=== PATIENT | female | born 1965 | race Caucasian/White ===

== ENCOUNTER → 2018-04-20 15:13 | Outpatient (CLI) | payer OTHER, SELFPAY ==
--- NOTE | 2018-04-20 15:48 | US_ITS ---
STUDY: RENAL ULTRASOUND - COMPLETE REASON FOR EXAM: Female, 53 years old. Microhematuria. TECHNIQUE: Ultrasound evaluation of the kidneys was performed with real-time and static barragan-scale imaging. COMPARISON: None. FINDINGS: RIGHT KIDNEY: Normal location of the right kidney, which is normal in size. The right kidney measures 10.9 cm x 4.2 cm x 4.8 cm. There is a normal cortex of the right kidney. The renal cortex measures 1.2 cm. There is no right renal mass or cyst. There are no right renal calculi. Fullness of the right renal pelvis. No hung hydronephrosis is seen. DISTAL RIGHT URETER: There is non-visualization of the distal right ureter. There is no demonstrated right ureterovesical junction calculus. There is a visualized right ureteral jet. LEFT KIDNEY: Normal location of the left kidney, which is normal in size. The left kidney measures 10.0 cm x 3.1 cm x 4.3 cm. There is a normal cortex of the left kidney. The renal cortex measures 1.6 cm. 2 renal cysts are seen. The larger measures 1.2 cm x 0.6 cm x 0.6 cm. There are no left renal calculi. There is no left hydronephrosis. DISTAL LEFT URETER: There is non-visualization of the distal left ureter. There is no demonstrated left ureterovesical junction calculus. There is a visualized left ureteral jet. BLADDER: The distended urinary bladder has a volume of 143 ml. The empty urinary bladder has a volume of 12 ml. There is a normal wall thickness of the distended urinary bladder. There is no demonstrated mass within the urinary bladder. There are no demonstrated bladder calculi. US/Kidney and Bladder IMPRESSION: Fullness of the right renal pelvis. There are 2 small left renal cysts. Electronically Signed: Torrey Hammond MD at 9:32 EDT Tel [phone], Service support ,
== END ==
LOC: OPUS 15:14
DX: R31.9 Hematuria, unspecified (principal)
CPT/HCPCS: 76770

== ENCOUNTER 2020-06-17 06:46 | Day surgery (SDC) | payer OTHER, SELFPAY ==
[2020-04-17 13:14] VITALS: BMI 24.2
[2020-06-17] VITALS (7 sets, daily range): BP systolic 86–119; BP diastolic 39–67; PULSE 67–82; RESP 14–16; TEMP 36.4; O2SAT 93–997; BMI 24.5
--- NOTE | 2020-06-17 07:20 | HP.PCM_ITS ---
History of Present Illness Date of Admission: 06/17/20 The patient is a 55 year old F here for screening colonoscopy. Patient does not have any abdominal pain or blood in her stool. She does have a history of colon cancer in her father under age 60. She has never had a colonoscopy. Past Medical/Surgical History - Planned Operation Planned Operative Procedure/s: colonoscopy Date of Operative Procedure: 05/20/20 Permit Signed: No S.O.S: No Is This Patient Having a Total Joint: No - Previous Hospitalizations/Surgeries HX Hospitalizations: No HX of Surgeries: x1. appendectomy. left ovary removed. uterine ablation. cardiac ablation fot SVT Any Problems With Anesthesia: No You/Your Family Experience Fever (Hyperthermia) With Anes: No Cholinesterase deficiency: No - Cardiovascular Hx Chest Pain within Last 2 months: No Hx of Irregular Heartbeat and/or Afib: Yes - hx PSVT, Dr Steinberg Hx Heart Attack: No Hx Congestive Heart Failure: No Hx Rheumatic Fever: No Hx Hypertension: No Hx Internal Defibrillator: No Hx Pacemaker: No Hx Cardiac Catheterization: No Hx Cardiac Surgery/Stents/Etc.: Yes - cardiac ablation per hx Hx Stress Test: No - echo ,holter ordered fot 05/2020 HX Edema: No Hx Pain in Legs when Walking/Leg Cramps: No - Respiratory Chronic Cough: No HX of Shortness of Breath: No - denies Hoarseness: No Hx Chronic Obstructive Pulmonary Disease (COPD): No Hx Asthma: No Hx Emphysema: No Hx Sleep Apnea: No Hx Oxygen Use at Home: No Hx Respiratory Tract Infection/Cold (presently): No Do You Snore Loudly (louder than talking or can be heard): No Do You Often Feel Tired/ Fatigued/ Sleepy Dring Daytime?: No Has Anyone Observed You Stop Breathing During Sleep?: No Result (for STOP score): Negative Hx Smoking: Yes - quit 2009 Smoking Status: Former smoker - Gastrointestinal Hx Gastroesophageal Reflux: Yes Controlled With Meds: No - diet controlled Hx Gastrointestinal Disorders: No Hx Gastrointestinal Bleed: No Hx Ulcer: No Hx Hiatal Hernia: No Difficulty Chewing/Swallowing: No Recent Onset of Swallowing Problems: No Special diet followed at home: No Hx Unplanned Weight Loss of 20#: No HX Unplanned Weight Gain of 20#: No - Neurological Hx Seizures: No HX Syncope/Blackout Spells/Unconsciousness: No Hx CVA/Stroke: No Hx Transient Ischemic Attacks (TIA): No Hx Multiple Sclerosis: No Hx Parkinson's Disease: No Hx Head/Neck Injury: No Hx Headaches: Yes - migraines in the past Hx Back Injury/Pain: Yes - hip contusion in the past Recent Onset of Speech Difficulty: No Restless Legs: No Does patient have nerve stimulator: No - Blood Disorder Hx Leukemia: No Bleeding Tendencies: Yes - aspirin. stop as drected Hx Deep Vein Thrombosis: No Hx High Cholesterol: No - borderline Blood Transmitted Disease: No Hx Hepatitis: No Hx Cirrhosis: No Hx Anemia: No Hx Blood Disorders: No - Reproduction : No Is Patient Lactating: No Hx Hysterectomy: No Hx Tubal Ligation: No Are You Post Menopause: Yes - Genitourinary Hx Renal Disease: No - Musculoskeletal Hx Arthritis: No Hx Rheumatoid Arthritis: No Hx Gout: No Recent Onset of an Orthopedic Problem: No - Endocrine Hx Diabetes: No Thyroid Disease: No Hx Steroid Therapy: No - Psycho/Social Hx Substance Use: No Hx Alcohol Use: No Hx Anxiety: No Hx Depression: No Mental Illness: No Hx Dementia: No - Miscellaneous Hx Cancer: No Recent Exposure to Contagious Disease: No Active MRSA: No Hx of C-Diff: No Any Loose Teeth: No Additional information pertinent to anesthesia:: see cardiac notes Allergies homatropine [From Hydromet] Allergy (Unknown, Verified 06/17/20 07:09) unknown hydrocodone [From Hydromet] Allergy (Unknown, Verified 06/17/20 07:09) unknown amoxicillin trihydrate [From Augmentin] Allergy (Verified 06/17/20 07:09) Unknown hydroxyzine Allergy (Verified 06/17/20 07:09) Unknown Latex, Natural Rubber Allergy (Verified 06/17/20 07:09) Rash potassium clavulanate [From Augmentin] Allergy (Verified 06/17/20 07:09) Unknown misoprostol [From Cytotec] Adverse Reaction (Verified 06/17/20 07:09) Upset Stomach - Discharge Is Pt Admitted From a [facility], or a Longterm: No Who Could Help: After D/C, Where Do you Plan to Go: Return Home - Physical Exam Vitals/I&O's: Vital Signs Temp Pulse Resp BP Pulse Ox 97.6 F L 71 16 119/67 100 06/17/20 07:11 06/17/20 07:11 06/17/20 07:11 06/17/20 07:11 06/17/20 07:11 Oxygen Delivery Method Room Air Weight: 134 lb 4.184 oz Body Mass Index (BMI) 24.5 General: Alert, Oriented x3 Lungs: Normal air movement Cardiovascular: Regular rate, Regular Rhythm Abdomen: Soft, Non Tender, Non-Distended Microbiology Past 72 Hours 06/16/20 14:18 Interface Orders SARS-CoV-2 Antigen (Rapid) - Final Assessment/Plan All Active Problems (Last Reviewed 04/17/20 @ 13:23 by Winnie Dinh) History of radiofrequency ablation procedure for cardiac arrhythmia (Resolved) Paroxysmal supraventricular tachycardia (Acute) Pre-employment examination (Acute) 55-year-old female for screening colonoscopy 1. I explained endoscopy in detail to the patient. I explained the risks including but not limited to stroke or heart attack with anesthesia, perforation of the GI tract, bleeding, infection. I explained that any of these could necessitate further emergency surgery. The patient understands and all questions were answered sufficiently. The patient wishes to proceed with procedure. Antonio Chilel MD Pager: [facility] [address] [place] [address], [address] [place] [address] Office: Surgery Risks - Colonoscopy Risks Include but are not Limited To: Risks include but are not limited to: Bleeding, perforation requiring further surgery, inability to complete colonoscopy requiring barium enema.
[2020-06-17] MEDS: Lactated Ringers 1,000 ML 100 ML IV (07:24)
--- NOTE | 2020-06-17 08:12 | OP.CCLET_ITS ---
06/17/2020 [facility] Re : Colonoscopy [facility] This procedure was performed on Wednesday, June 17, 2020. My impressions and recommendations are as follows: Impressions : - Preparation of the colon was unsatisfactory. - Stool in the rectum. - No specimens collected. Recommendations : - Discharge patient to home. - Resume previous diet. - Continue present medications. - Repeat colonoscopy tomorrow because the bowel preparation was poor. My findings are described in the full procedure note, which is enclosed. If I can be of further assistance, please feel free to contact me at Doctor phone number(s): , Work: . Sincerely, Antonio Chilel MD 06/17/2020 8:12:24 AM This report has been signed electronically.
--- NOTE | 2020-06-17 08:12 | OP.COLON_ITS ---
Patient Name: Verona Nevarez Procedure Date: 06/17/2020 7:55 AM Date of : 1965 Age: 55 Procedure: Colonoscopy Indications: Screening for colorectal malignant neoplasm Providers: Antonio Chilel MD Referring MD: [facility] Medicines: Monitored Anesthesia Care Patient Profile: Last Colonoscopy: none. The patient's first colonoscopy is today. Complications: No immediate complications. Procedure: Pre-Anesthesia Assessment: - Prior to the procedure, a History and Physical was performed, and patient medications and allergies were reviewed. The patient's tolerance of previous anesthesia was also reviewed. The risks and benefits of the procedure and the sedation options and risks were discussed with the patient. All questions were answered, and informed consent was obtained. Prior Anticoagulants: The patient has taken no previous anticoagulant or antiplatelet agents. After reviewing the risks and benefits, the patient was deemed in satisfactory condition to undergo the procedure. After I obtained informed consent, the scope was passed under direct vision. Throughout the procedure, the patient's blood pressure, pulse, and oxygen saturations were monitored continuously. The colonoscope was introduced through the anus with the intention of advancing to the cecum. The scope was advanced to the rectum before the procedure was aborted. Medications were not given. The colonoscopy was performed without difficulty. The patient tolerated the procedure well. The quality of the bowel preparation was unsatisfactory. Scope In: 8:02:14 AM Scope Out: 8:03:16 AM Total Procedure Duration Time 0 hours 1 minute 2 seconds Findings: A large amount of solid stool was found in the rectum, precluding visualization. Impression: - Preparation of the colon was unsatisfactory. - Stool in the rectum. - No specimens collected. Recommendation: - Discharge patient to home. - Resume previous diet. - Continue present medications. - Repeat colonoscopy tomorrow because the bowel preparation was poor. Procedure Code(s): --- Professional --- 05800, 55, Colonoscopy, flexible; diagnostic, including collection of specimen(s) by brushing or washing, when performed (separate procedure) Diagnosis Code(s): --- Professional --- Z12.11, Encounter for screening for malignant neoplasm of colon CPT copyright 2017 [employer]. All rights reserved. The codes documented in this report are preliminary and upon inpatient coder review may be revised to meet current compliance requirements. Antonio Chilel MD 06/17/2020 8:12:24 AM This report has been signed electronically. Number of Addenda: 0 Note Initiated On: 06/17/2020 7:55 AM
== END 2020-06-17 09:02 | disposition home or self-care (01) ==
LOC: EN 06:48 → AC 06:48
PROVIDERS: Anesthesiology; Visit Provider Surgery
PROC: 0DJD8ZZ Inspection of Lower Intestinal Tract, Via Natural or Artificial Opening Endoscopic (ICD-10-PCS; CPT 45378; principal; 2020-06-17 07:55)
DX: Z12.11 Encounter for screening for malignant neoplasm of colon (principal); Z80.0 Family history of malignant neoplasm of digestive organs; Z87.891 Personal history of nicotine dependence; Z20.828 Contact with and (suspected) exposure to other viral communicable diseases
CPT/HCPCS: 45378; 87426; 87635; C9803; J7120; J2405; U0003

== ENCOUNTER → 2020-06-27 06:46 | Outpatient (CLI) | payer OTHER, SELFPAY ==
[2020-06-17 07:11] VITALS: BMI 24.5
[2020-06-27 07:15] LABS: Absolute Lymphocyte Count 1.52 X10^3/uL (0.83-4.51); Absolute Neutrophil Count 2.6 X10^3/uL (2.0-7.7); Basophil# 0.04 X10^3/uL; Basophil% 0.8 % (0-1); Eosinophil# 0.19 X10^3/uL; Hemoglobin 12.5 g/dL (12.0-15.0); Lymphocyte # 1.52 X10^3/ul (4.0); Lymphocyte % 31.7 % (19-41); Mean Corp Hgb Conc 32.1 g/dL (32-36); Mean Corpuscular Hgb 29.2 pg (27.0-32.0); Mean Corpuscular Volume 91.1 fL (81-99); Mean Platelet Vol. 10.6 fl (6.2-12.0); Monocyte# 0.46 X10^3/uL; Monocyte% 9.6 % (0-10); NRBC Flagged by Analyzer 0 % (0-5); Neutrophil # 2.56 X10^3/uL (2.7-7.7); Neutrophil % 53.5 % (47-70); Platelet Count 324 K/mm3 (150-450); RBC Distribution Width CV 12.8 % (11.6-14.6); RBC Distribution Width SD 42.7 fl (35.1-43.9); Red Blood Count 4.28 M/mm3 (4.2-5.4); White Blood Count 4.8 K/mm3 (4.4-11.0)
[2020-06-27 07:36] LABS: ALB/GLOB Ratio 1.1 RATIO (0.9-2.4); AST(SGOT) 12 U/L (15-37); Alanine Aminotransfer ALT/SGPT 19 U/L (13-56); Albumin, Serum 4.1 g/dL (3.2-5.0); Alkaline Phosphatase 106 U/L (45-117); Anion Gap 4 (5-15); BUN 19 mg/dL (7-18); BUN/Creat Ratio 19.7 RATIO (10-20); Chloride 107 mmol/L (98-107); Cholesterol 230 mg/dL (200); Creatinine, Serum 0.96 mg/dL (0.55-1.02); EST Glomerular Filtration Rate 64 mL/min (>60); Est Glom Filt Rate - Afr Amer 78 mL/min (>60); Globulin 3.7 g/dL (2.2-4.2); Glucose 96 mg/dL (74-106); High Density Lipoprotein 55 mg/dL; Potassium 3.8 mmol/L (3.5-5.1); Protein, Total 7.8 g/dL (6.4-8.2); Sodium Level 140 mmol/L (136-145); Triglycerides 187 mg/dL; Very Low Density Lipoprotein 37 mg/dL (5-40)
[2020-06-27 07:46] LABS: Hemoglobin A1c 5.4 % (3.8-5.6)
[2020-06-27 08:48] LABS: Vitamin D,25 Hydroxy 43.7 ng/mL
== END ==
LOC: LAB 06:49
DX: E78.5 Hyperlipidemia, unspecified (principal); D64.9 Anemia, unspecified; R73.09 Other abnormal glucose; E55.9 Vitamin D deficiency, unspecified
CPT/HCPCS: 36415; 80053; 80061; 82306; 83036; 85025

== ENCOUNTER → 2020-06-30 16:00 | Outpatient (CLI) | payer OTHER, SELFPAY ==
[2020-06-17 07:11] VITALS: BMI 24.5
== END ==
PROVIDERS: Referring Provider Surgery; Visit Provider Surgery
DX: Z20.828 Contact with and (suspected) exposure to other viral communicable diseases (principal)
CPT/HCPCS: 87426; C9803

== ENCOUNTER → 2020-12-11 07:56 | Outpatient (CLI) | payer OTHER, SELFPAY ==
[2020-11-07 08:30] VITALS: BMI 23.2
--- NOTE | 2020-12-11 08:06 | BI_ITS ---
MAMMOGRAPHY - BILATERAL SCREENING 3-D TOMOSYNTHESIS REASON FOR EXAM: Female, 55 years old. Routine screening PERTINENT HISTORY: No significant family history. TECHNIQUE: 2-D mammograms and 3-D Tomosynthesis of the breast (s) were performed. CAD was performed. COMPARISON: 2016 FINDINGS: The breast composition is heterogeneously dense that can obscure small breast masses. Scattered benign calcifications are seen. No dense spiculated masses or suspicious microcalcifications are identified. No architectural distortion is identified. There is no skin thickening or retraction. There has been no significant change since the prior study. BI/SCRN MAMM (CAD)W/[place] BILAT IMPRESSION: No mammographic signs of malignancy. Routine yearly mammograms recommended. ASSESSMENT CATEGORY: BIRADS Category 2: Benign. A letter regarding these results will be sent to the patient by the facility within 30 days. FOLLOW UP RECOMMENDATION: Yearly follow up mammogram recommended. (A) Approximately 10% of breast cancers are not detected by mammography. A normal mammogram should not delay biopsy of a clinically suspicious abnormality. Electronically Signed: Anant Soares MD at 8:56 EDT , Service support ,
== END ==
PROVIDERS: Referring Provider Nurse Practitioner Adult Health; Visit Provider Nurse Practitioner Adult Health
DX: Z12.31 Encounter for screening mammogram for malignant neoplasm of breast (principal)
CPT/HCPCS: 77063; 77067

== ENCOUNTER 2021-04-03 05:40 | Emergency (ER) | payer OTHER, SELFPAY ==
[2021-04-03 05:42] VITALS: BP 117/67; PULSE 83; RESP 16; TEMP 37.3; O2SAT 99; BMI 22.9
--- NOTE | 2021-04-03 06:22 | EDS_ITS ---
HPI History of Present Illness Chief Complaint: General Illness Narrative Narrative: 56-year-old female presenting with generalized fatigue. She tested positive for Covid on the third. She states that she is not nauseous but she is had a decreased p.o. intake. Patient is able to drink Ensure yesterday and chicken soup last night. She is making urine and stool. She does admit to mild diarrhea. She denies any chest pain, palpitations, shortness of breath, fevers. She states she did have fevers initially. Patient also stating that she has difficulty sleeping second of feeling unwell. [facility] Medical History GERD (gastroesophageal reflux disease) History of back problems Mixed hyperlipidemia Paroxysmal supraventricular tachycardia Home Medications carvedilol 3.125 mg tablet 3.125 mg PO BID 02/28/20 [History Last Taken 06/17/20 05:00] cholecalciferol (vitamin D3) 125 mcg (5,000 unit) capsule 125 mcg PO DAILY 02/28/20 [History Last Taken Unknown] aspirin 81 mg tablet,delayed release 81 mg PO DAILY PRN 04/17/20 [History Last Taken Unknown] lactobacillus combo no.11 1 ea PO BID 05/14/20 [History Last Taken Unknown] pseudoephedrine-ibuprofen 1 ea PO DAILY PRN 05/14/20 [History Last Taken 06/17/20 05:00] atorvastatin 10 mg tablet 10 mg PO DAILY #30 tablet 11/07/20 [Rx Last Taken Unkn own] ondansetron 4 mg PO Q8H PRN PRN #10 tab 04/03/21 [Rx Last Taken Unknown] Allergy/AdvReac Type Severity Reaction Status Date / Time homatropine [From Hydromet] Allergy Unknown unknown Verified 04/03/21 05:45 hydrocodone [From Hydromet] Allergy Unknown unknown Verified 04/03/21 05:45 amoxicillin trihydrate Allergy Unknown Verified 04/03/21 05:45 [From Augmentin] erythromycin base Allergy Rash Verified 04/03/21 05:49 hydroxyzine Allergy Unknown Verified 04/03/21 05:45 Latex, Natural Rubber Allergy Rash Verified 04/03/21 05:45 potassium clavulanate Allergy Unknown Verified 04/03/21 05:45 [From Augmentin] pseudoephedrine Allergy Other Verified 04/03/21 05:49 tramadol Allergy Other Verified 04/03/21 05:49 budesonide AdvReac Other Verified 04/03/21 05:49 misoprostol [From Cytotec] AdvReac Upset Verified 04/03/21 05:45 Stomach Family History Mother Arthritis Heart disease Father Colon cancer Heart disease CVA (cerebral vascular accident) Grandfather Heart disease Grandmother Heart disease Aunt Seizures Surgical History History of appendectomy History of History of left oophorectomy History of radiofrequency ablation procedure for cardiac arrhythmia Social History Smoking Status: Former smoker alcohol intake: never substance use type: does not use caffeine: Yes Type: carbonated beverages Number of servings: 1 and coffee Number of servings: 1 ROS ROS ED Constitutional Constitutional ED: Denies chills or fever(s) Eyes Eyes: Denies blurry vision or diplopia ENT ENT ED: Denies rhinorrhea or sore throat Cardiovascular Cardiovascular: Denies chest pain or palpitations Respiratory/Chest Respiratory/Chest: Denies cough or dyspnea Gastrointestinal Gastrointestinal: Denies abdominal pain, nausea or vomiting Genitourinary Genitourinary ED: Denies dysuria or hematuria Musculoskeletal Musculoskeletal: Denies arthralgias or myalgias Integumentary Denies Abrasions or rash Neurologic Neurologic: Denies headache(s) EXAM Physical Exam Const Vital Signs: 04/03/21 05:42 04/03/21 05:45 Temperature 99.2 F H Temperature Source Oral Pulse Rate 83 Respiratory Rate 16 Respiratory Effort Normal Respiratory Pattern Normal Blood Pressure 117/67 Blood Pressure Mean 83 Pulse Ox 99 Oxygen Delivery Method Room Air Positive well nourished General Appearance ED: NAD; Negative for pallor HEENT Reports moist mucous membranes Negative for trauma Eyes PERRL and EOMs intact bilaterally Neck no lymphadenopathy and supple Resp normal respiratory effort and clear to auscultation bilaterally Cardio regular rate and regular rhythm GI normal to inspection, nondistended, normoactive bowel sounds Neuro oriented x3 and CN's II-XII intact bilaterally Sensorium / Orientation: alert Psych mental status grossly normal Skin no rashes or lesions noted General Skin Exam: Negative for jaundice or pallor MDM MDM MDM Narrative Medical decision making narrative: Patient presenting with generalized fatigue and stating that she has decreased p.o. intake but is able to eat and drink and she is making urine and stool. Her vital signs are normal. She denies any chest pain or shortness of breath. She has not had any fevers since her initial symptoms started. Patient states that she is not actually nauseous. Patient states that she was referred for monoclonal antibodies and told that she did not qualify. Patient appears clinically stable. I counseled her I can give her some Zofran in case she does develop nausea. She is counseled to stay well- hydrated and try to eat what she can. I do not believe she needs blood work or imaging at this time. Patient states that she is having some trouble sleeping. I counseled her she can try some Benadryl but I do not feel comfortable giving her Ambien or temazepam. Patient is amenable to this course. Patient was discharged home in stable condition. Impression: 1. History of COVID-19 2. Generalized fatigue Discharge Plan Triage Chief Complaint: General Illness ED Provider: Felix Singletary Dx/Rx/DC Orders Instructions: Coronavirus Disease 2019 (COVID-19): Caring for Yourself or Others Prescriptions: New ondansetron 4 mg tablet,disintegrating 4 mg PO Q8H PRN PRN (Reason: Nausea) Qty: 10 RF: 0 No Action carvedilol 3.125 mg tablet 3.125 mg PO BID RF: 0 cholecalciferol (vitamin D3) 125 mcg (5,000 unit) capsule 125 mcg PO DAILY RF: 0 aspirin [Adult Low Dose Aspirin] 81 mg tablet,delayed release (DR/EC) 81 mg PO DAILY PRN (Reason: herat health) RF: 0 atorvastatin 10 mg tablet 10 mg PO DAILY Qty: 30 RF: 11 lactobacillus combo no.11 1 EACH capsule, sprinkle 1 ea PO BID RF: 0 pseudoephedrine-ibuprofen 1 EACH tablet 1 ea PO DAILY PRN (Reason: Allergies) RF: 0 [facility] - Disposition Disposition: Home, Self Care
[2021-04-03 07:07] VITALS: PULSE 81; RESP 20; O2SAT 98
== END 2021-04-03 07:08 | disposition home or self-care (01) ==
LOC: ED 06:42
PROVIDERS: Emergency Provider Student in an Organized Health Care Education/Training Program
DX: R53.83 Other fatigue (principal); Z86.16 Personal history of COVID-19; R19.7 Diarrhea, unspecified; I47.1 Supraventricular tachycardia; E78.2 Mixed hyperlipidemia; K21.9 Gastro-esophageal reflux disease without esophagitis; Z79.82 Long term (current) use of aspirin; Z79.899 Other long term (current) drug therapy; Z87.891 Personal history of nicotine dependence
CPT/HCPCS: 99284

== ENCOUNTER 2021-05-25 09:01 | Emergency (ER) | payer OTHER, SELFPAY ==
[2021-05-25 09:02] VITALS: BP 113/63; PULSE 140; RESP 18; TEMP 36.6; O2SAT 98; BMI 22.3
--- NOTE | 2021-05-25 09:22 | EDS_ITS ---
HPI History of Present Illness Chief Complaint: Palpitations Informant: patient Onset/Context/Timing Onset: Today and Hours Current Severity: Mild Maximum Severity: Mild Worsened By: Nothing Relieved By: Nothing Narrative Narrative: 56-year-old female history of SVT with prior ablation and reflux. States she has been doing well has not had a episode of accelerated heart rate for probably a year. Said around 730 this morning at work and suddenly came on. She denies other symptoms just says she feels like her heart racing about 140 beats a minute. Denies any chest pain or shortness of breath. No leg pain or swelling. No history of thyroid disease. She is not recently been ill. No recent hospitalization. Prior Similar Symptoms: Yes Recent Illness/Hospitalization: No CVD Risk Factors: Negative for Hypertension, Diabetes, Hypercholesterolemia, Family History 1' </=55 and Smoking PE Risk Factors: Negative for Recent Travel/Surgery, Recent Immobilization and Prior DVT or PE TAD Risk Factors: Negative for Marfan's Syndrome and Hypertension [facility] Medical History GERD (gastroesophageal reflux disease) History of back problems Mixed hyperlipidemia Paroxysmal supraventricular tachycardia Home Medications carvedilol 3.125 mg tablet 3.125 mg PO BID 02/28/20 [History Last Taken 06/17/20 05:00] cholecalciferol (vitamin D3) 125 mcg (5,000 unit) capsule 125 mcg PO DAILY 02/28/20 [History Last Taken Unknown] aspirin 81 mg tablet,delayed release 81 mg PO DAILY PRN 04/17/20 [History Last Taken Unknown] lactobacillus combo no.11 1 ea PO BID 05/14/20 [History Last Taken Unknown] pseudoephedrine-ibuprofen 1 ea PO DAILY PRN 05/14/20 [History Last Taken 06/17/20 05:00] ondansetron 4 mg PO Q8H PRN PRN #10 tab 04/03/21 [Rx Last Taken Unknown] [id number]-vit K [Multi For Her] 1 tab-cap PO DAILY 05/25/21 [History Last Taken Unknown] Allergy/AdvReac Type Severity Reaction Status Date / Time homatropine [From Hydromet] Allergy Unknown unknown Verified 04/03/21 05:45 hydrocodone [From Hydromet] Allergy Unknown unknown Verified 04/03/21 05:45 amoxicillin trihydrate Allergy Unknown Verified 04/03/21 05:45 [From Augmentin] erythromycin base Allergy Rash Verified 04/03/21 05:49 hydroxyzine Allergy Unknown Verified 04/03/21 05:45 Latex, Natural Rubber Allergy Rash Verified 04/03/21 05:45 potassium clavulanate Allergy Unknown Verified 04/03/21 05:45 [From Augmentin] pseudoephedrine Allergy Other Verified 04/03/21 05:49 tramadol Allergy Other Verified 04/03/21 05:49 budesonide AdvReac Other Verified 04/03/21 05:49 misoprostol [From Cytotec] AdvReac Upset Verified 04/03/21 05:45 Stomach Family History Mother Arthritis Heart disease Father Colon cancer Heart disease CVA (cerebral vascular accident) Grandfather Heart disease Grandmother Heart disease Aunt Seizures Surgical History History of appendectomy History of History of left oophorectomy History of radiofrequency ablation procedure for cardiac arrhythmia Social History Smoking Status: Former smoker alcohol intake: never substance use type: does not use caffeine: Yes Type: carbonated beverages Number of servings: 1 and coffee Number of servings: 1 ROS ROS ED ROS Narrative Denies recent illness. Review of Systems ROS Unobtainable: Denies due to encephalopathy Constitutional Constitutional ED: Denies fever(s) Eyes Eyes: Denies none ENT ENT ED: Denies ear pain Cardiovascular Cardiovascular: Reports palpitations and racing heartbeat; Denies as per HPI or chest pain Respiratory/Chest Respiratory/Chest: Denies dyspnea Gastrointestinal Gastrointestinal: Denies abdominal pain Genitourinary Genitourinary ED: Denies dysuria Musculoskeletal Musculoskeletal: Denies myalgias Integumentary Denies rash Neurologic Neurologic: Denies headache(s) Psychiatric Psychiatric: Denies depression Endocrine Endocrinology: Denies polyuria Hematologic/Lymphatic Hematologic/Lymphatic: Denies easy bruising Allergic/Immunologic Allergic/Immunologic ED: Denies urticaria EXAM Physical Exam Narrative Exam Narrative: Middle-aged female vital signs stable she is tachycardic at 140 blood pressure is 113/63. Pulse ox 98 nonhypoxic afebrile. Clinically looks well. HEENT exam unremarkable. Neck nontender. No lymphadenopathy. No thyromegaly. Lungs clear to auscultation bilaterally. Heart tachycardic rate about 140. Abdomen soft nontender. Moving all 4 extremities. Calves nontender without edema or cords. Neurologically she is awake alert with no focal motor deficits. Const Vital Signs: 05/25/21 09:02 05/25/21 09:30 Temperature 98 F Temperature Source Temporal Pulse Rate 140 H 143 H Respiratory Rate 18 14 Respiratory Effort Normal Non-Labored Respiratory Pattern Normal Blood Pressure 113/63 Blood Pressure Mean 79 Pulse Ox 98 100 Oxygen Delivery Method Room Air Room Air Positive well nourished and well developed General Appearance ED: well developed and NAD HEENT Reports moist mucous membranes normocephalic and atraumatic Eyes PERRL and EOMs intact bilaterally Neck no lymphadenopathy, supple and no JVD General: Negative for tenderness Chest Wall inspection of chest normal and palpation of chest normal Resp normal respiratory effort Effort and Inspection: respiratory distress Auscultation: Negative for rales, rhonchi or wheezes Cardio regular rhythm, S1 normal heart sound, S2 normal heart sound and no murmurs Rate: tachycardic GI normal to inspection, nondistended, normoactive bowel sounds, soft to palpation, non-tender, non-distended and no masses Auscultation: Negative for hyperactive bowel sounds Back/Spine no CVA tenderness Extremity normal to inspection General Extremety ED: Negative for edema or tenderness General Extremity: Negative for edema Neuro oriented x3 Sensorium / Orientation: awake, alert, oriented to person, oriented to place and oriented to time Motor Exam: strength 5/5 throughout Psych mental status grossly normal Skin no rashes or lesions noted and no wounds MDM MDM MDM Narrative Medical decision making narrative: Middle-aged female history of prior SVT. Clinically appears to be in atrial flutter. Treated with Cardizem. Labs being obtained. Currently she is tolerating her tachycardia quite well. Lab Data Attestation: I reviewed the patient's lab results. Lab results narrative: CBC White count of 5. Hemoglobin 12.9. Electrolytes unremarkable gap of 5 normal creatinine. Troponin normal at 3 and TSH normal at 1.8. Chest x-ray unremarkable. Repeat exam patient is doing well at 11:10 AM. She currently is a normal sinus rhythm rate is 72. She is symptom-free. She had I went over her lab test which were all normal and her chest x-ray. She is comfortable being discharged home and follow-up with her used car lot attendant Dr. Floyd Steinberg. She knows to return if worse. Labs: Laboratory Results - last 24 hr 05/25/21 05/25/21 09:20 09:20 WBC 5.6 RBC 4.34 Hgb 12.9 Hct 39.2 MCV 90.3 MCH 29.7 MCHC 32.9 RDW Std Deviation 43.0 RDW Coeff of Qamar 13.0 Plt Count 354 MPV 10.7 Immature Gran % (Auto) 0.400 Neut % (Auto) 54.5 Lymph % (Auto) 31.5 [place] % (Auto) 7.7 Eos % (Auto) 5.0 Baso % (Auto) 0.9 Absolute Neuts (auto) 3.0 Absolute Lymphs (auto) 1.76 Nucleated RBC % 0 Sodium 140 Potassium 3.6 Chloride 107 Carbon Dioxide 28.0 Anion Gap 5 BUN 15 Creatinine 0.95 Estim Creat Clear Calc 53.54 Est GFR (MDRD) Af Amer 79 Est GFR (MDRD) Non-Af 65 BUN/Creatinine Ratio 15.8 Glucose 97 Calcium 9.8 Troponin I High Sens 3 TSH 1.80 Radiography Chest X-Ray - ED: 1 View, Read by ED Physician, Normal, Heart, Lungs, Mediastinum, Bony Structures and No Acute Disease Diagnostic Testing: Clinical Impression(s) from Imaging Studies Chest X-Ray 05/25/21 09:35 IMPRESSION: Hyperinflation. The lungs are clear. Electronically Signed: Torrey Hammond MD at 10:13 EDT , Service support , View portable chest x-ray interpreted by myself and the radiologist shows no acute abnormality. Rhythm Strip Rate: 130 Ectopy: None EKG Initial EKG: Interpretation: No Acute Injury Pattern Comments: Atrial flutter with variable block rate about 130. No signs of PA or ischemia. Discharge Plan Triage Chief Complaint: Palpitations ED Provider: Junior Trejo Dx/Rx/DC Orders Clinical Impression: Atrial flutter Instructions: ED Atrial Flutter Prescriptions: No Action carvedilol 3.125 mg tablet 3.125 mg PO BID RF: 0 cholecalciferol (vitamin D3) 125 mcg (5,000 unit) capsule 125 mcg PO DAILY RF: 0 aspirin [Adult Low Dose Aspirin] 81 mg tablet,delayed release (DR/EC) 81 mg PO DAILY PRN (Reason: herat health) RF: 0 lactobacillus combo no.11 1 EACH capsule, sprinkle 1 ea PO BID RF: 0 pseudoephedrine-ibuprofen 1 EACH tablet 1 ea PO DAILY PRN (Reason: Allergies) RF: 0 ondansetron 4 mg tablet,disintegrating 4 mg PO Q8H PRN PRN (Reason: Nausea) Qty: 10 RF: 0 Multi For Her 18 mg iron-600 mcg-40 mcg Capsule 1 tab-cap PO DAILY RF: 0 [facility] Ref[facility]: Floyd Steinberg MD [STAFF PHYSICIAN] - As soon as possible [facility] Doll [Primary Care Provider] - Activity Restrictions/Additional Instructions: You has converted to back to a normal sinus rhythm. Your labs and chest x-ray were unremarkable. Continue your current medications. Call and follow-up with your used car lot attendant Dr. Floyd Steinberg. Return if feeling worse or heart rate becomes fast again. Disposition Disposition: Home, Self Care
--- NOTE | 2021-05-25 09:22 | EKG12_ITS ---
Test Reason : PALPATATIONS Blood Pressure : / mmHG Vent. Rate : 130 BPM Atrial Rate : 300 BPM P-R Int : 000 ms QRS Dur : 064 ms QT Int : 308 ms P-R-T Axes : 000 048 084 degrees QTc Int : 453 ms Atrial flutter with variable A-V block Nonspecific ST and T wave abnormality Abnormal ECG Confirmed by TERESSA TRAORE, JAYMIE ([id number]), news assignment editor AVTAR CARDONA ([id number]) on 05/28/2021 7:42:55 AM Referred By: JAQUELINE/MARINA Confirmed By:JAYMIE GANNON MD
[2021-05-25] MEDS: dilTIAZem 25 MG/5 ML Vial IV BOLUS (09:29)
[2021-05-25 09:30] VITALS: PULSE 143; RESP 14; O2SAT 100
[2021-05-25 09:34] LABS: Absolute Lymphocyte Count 1.76 X10^3/uL (0.83-4.51); Basophil# 0.05 X10^3/uL; Basophil% 0.9 % (0-1); Eosinophil# 0.28 X10^3/uL; Hematocrit 39.2 % (37-47); Hemoglobin 12.9 g/dL (12.0-15.0); Lymphocyte # 1.76 X10^3/ul (0.83-4.51); Lymphocyte % 31.5 % (19-41); Mean Corp Hgb Conc 32.9 g/dL (32-36); Mean Corpuscular Hgb 29.7 pg (27.0-32.0); Mean Corpuscular Volume 90.3 fL (81-99); Mean Platelet Vol. 10.7 fl (6.2-12.0); Monocyte# 0.43 X10^3/uL; Monocyte% 7.7 % (0-10); NRBC Flagged by Analyzer 0 % (0-5); Neutrophil # 3.04 X10^3/uL (2.7-7.7); Neutrophil % 54.5 % (47-70); Platelet Count 354 K/mm3 (150-450); Red Blood Count 4.34 M/mm3 (4.2-5.4); White Blood Count 5.6 K/mm3 (4.4-11.0)
--- NOTE | 2021-05-25 09:35 | RAD_ITS ---
STUDY: X-RAY CHEST REASON FOR EXAM: Female, 56 years old. Chest pain TECHNIQUE: Single AP portable view of the chest. COMPARISON: None. FINDINGS: EKG electrodes are seen. There is hyperinflation of the lungs consistent with chronic obstructive lung disease (COPD). There is no demonstrated pleural abnormality. Normal size heart. Normal mediastinum and randall. Normal visualized pulmonary arteries. Normal visualized aortic arch and descending thoracic aorta. There are degenerative changes of the visualized thoracic spine. Normal visualized ribs, clavicles, and shoulders. There is no demonstrated abnormality of the visualized soft tissue structures of the upper abdomen. RAD/Chest 1 View (Portable) IMPRESSION: Hyperinflation. The lungs are clear. Electronically Signed: Torrey Hammond MD at 10:13 EDT , Service support ,
[2021-05-25 10:09] LABS: Anion Gap 5 (5-15); BUN 15 mg/dL (7-18); BUN/Creat Ratio 15.8 RATIO (10-20); Calcium,Total 9.8 mg/dL (8.5-10.1); Chloride 107 mmol/L (98-107); Creatinine, Serum 0.95 mg/dL (0.55-1.02); EST Glomerular Filtration Rate 65 mL/min (>60); Est Glom Filt Rate - Afr Amer 79 mL/min (>60); Estimated Creatinine Clearance 53.54 ml/min; Glucose 97 mg/dL (74-106); Potassium 3.6 mmol/L (3.5-5.1); Sodium Level 140 mmol/L (136-145); Troponin-I HS 3 pg/mL (3.0-54.0)
[2021-05-25 11:14] VITALS: PULSE 74; RESP 12; O2SAT 100
== END 2021-05-25 11:19 | disposition home or self-care (01) ==
PROVIDERS: Emergency Provider Emergency Medicine
DX: I48.92 Unspecified atrial flutter (principal); E78.2 Mixed hyperlipidemia; K21.9 Gastro-esophageal reflux disease without esophagitis; Z79.82 Long term (current) use of aspirin; Z79.899 Other long term (current) drug therapy; Z87.891 Personal history of nicotine dependence
CPT/HCPCS: 71045; 80048; 84443; 84484; 85025; 93005; 96374; 99284; A4216

== ENCOUNTER 2022-04-28 18:43 | Emergency (ER) | payer MEDICAID, SELFPAY ==
[2022-04-28] VITALS (8 sets, daily range): BP systolic 106–133; BP diastolic 64–86; PULSE 75–133; RESP 16–18; TEMP 36–36.6; O2SAT 96–100; BMI 23.6
[2022-04-28 19:28] LABS: Absolute Lymphocyte Count 2.44 X10^3/uL (0.83-4.51); Absolute Neutrophil Count 3.8 X10^3/uL (2.0-7.7); Basophil# 0.04 X10^3/uL; Basophil% 0.6 % (0-1); Eosinophil# 0.24 X10^3/uL; Eosinophils% 3.4 % (0-5); Hematocrit 38.2 % (37-47); Hemoglobin 12.7 g/dL (12.0-15.0); Lymphocyte # 2.44 X10^3/ul (0.83-4.51); Lymphocyte % 34.3 % (19-41); Mean Corp Hgb Conc 33.2 g/dL (32-36); Mean Corpuscular Hgb 29.9 pg (27.0-32.0); Mean Corpuscular Volume 89.9 fL (81-99); Mean Platelet Vol. 11.1 fl (6.2-12.0); Monocyte# 0.58 X10^3/uL; Monocyte% 8.2 % (0-10); NRBC Flagged by Analyzer 0 % (0-5); Neutrophil # 3.79 X10^3/uL (2.7-7.7); Neutrophil % 53.2 % (47-70); Platelet Count 352 K/mm3 (150-450); RBC Distribution Width SD 42.2 fl (35.1-43.9); Red Blood Count 4.25 M/mm3 (4.2-5.4); White Blood Count 7.1 K/mm3 (4.4-11.0)
--- NOTE | 2022-04-28 19:32 | RAD_ITS ---
STUDY: X-RAY CHEST REASON FOR EXAM: Female, 57 years old. Irregular heart rhythm and heart fluttering for 1 hour. TECHNIQUE: Single AP portable view of the chest. COMPARISON: 05/25/2021 FINDINGS: The lungs are clear and expanded. There is no demonstrated pleural abnormality. Normal size heart. Normal mediastinum and randall. Normal visualized pulmonary arteries. Normal visualized aortic arch and descending thoracic aorta. Stable mild scoliosis. Normal visualized ribs, clavicles, and shoulders. There is no demonstrated abnormality of the visualized soft tissue structures of the upper abdomen. RAD/Chest 1 View (Portable) IMPRESSION: No acute cardiopulmonary disease or interval change. Electronically Signed: Geoff Segovia DO at 19:46 EDT ,
--- NOTE | 2022-04-28 19:36 | ED.VIS.CHEST ---
HPI History of Present Illness Chief Complaint: Palpitations Informant: patient Narrative Narrative: 57-year-old female with a history of atrial fibrillation presenting to the emergency department with palpitations. Patient states that she sees Dr. Steinberg for cardiology. She states that approximately 1 hour prior to arrival she felt her heart began fluttering. She states that she has seen cardiology and electrophysiology for this. She denies any chest pain or shortness of breath. She notes that she takes metoprolol but no blood thinners. [facility] Medical History GERD (gastroesophageal reflux disease) History of back problems Mixed hyperlipidemia Paroxysmal supraventricular tachycardia Home Medications aspirin 81 mg tablet,delayed release (Adult Low Dose Aspirin) 81 mg PO DAILY PRN [employer] 04/17/20 [History Last Taken Unknown] lactobacillus combo no.11 15 billion cell sprinkle capsule 1 ea PO DAILY supplement 05/14/20 [History Last Taken Unknown] cholecalciferol (vitamin D3) 50 mcg (2,000 unit) tablet 50 mcg PO DAILY 11/02/21 [History Last Taken Unknown] vitamin C 90 mg-zinc gluconate 15 mg-herbal complex no. 325 lozenges (Elderberry Zinc Vit C) 1 abdoulaye PO DAILY 11/02/21 [History Last Taken Unknown] metoprolol tartrate 25 mg tablet 12.5 mg PO BID #180 tabs 04/16/22 [Rx Last Taken Unknown] potassium chloride 20 mEq oral packet 20 meq PO DAILY #5 ea 04/28/22 [Rx Last Taken Unknown] Allergy/AdvReac Type Severity Reaction Status Date / Time homatropine [From Hydromet] Allergy Unknown unknown Verified 04/28/22 18:43 hydrocodone [From Hydromet] Allergy Unknown unknown Verified 04/28/22 18:43 amoxicillin trihydrate Allergy Unknown Verified 04/28/22 18:43 [From Augmentin] erythromycin base Allergy Rash Verified 04/28/22 18:43 hydroxyzine Allergy Unknown Verified 04/28/22 18:43 Latex, Natural Rubber Allergy Rash Verified 04/28/22 18:43 potassium clavulanate Allergy Unknown Verified 04/28/22 18:43 [From Augmentin] pseudoephedrine Allergy Other Verified 04/28/22 18:43 tramadol Allergy Other Verified 04/28/22 18:43 budesonide AdvReac Other Verified 04/28/22 18:43 misoprostol [From Cytotec] AdvReac Upset Verified 04/28/22 18:43 Stomach Family History Mother Arthritis Heart disease Father Colon cancer Heart disease CVA (cerebral vascular accident) Grandfather Heart disease Grandmother Heart disease Aunt Seizures Surgical History History of appendectomy History of History of left oophorectomy History of radiofrequency ablation procedure for cardiac arrhythmia Social History Smoking Status: Former smoker alcohol intake: never substance use type: does not use caffeine: Yes Type: carbonated beverages Number of servings: 1 and coffee Number of servings: 1 ROS ROS ED Constitutional Constitutional ED: Denies chills or weight loss Eyes Eyes: Denies change in vision or diplopia ENT ENT ED: Denies ear pain, rhinorrhea or sore throat Cardiovascular Cardiovascular: Reports palpitations and racing heartbeat; Denies chest pain or orthopnea Respiratory/Chest Respiratory/Chest: Denies cough, dyspnea or orthopnea Gastrointestinal Gastrointestinal: Denies abdominal pain, diarrhea, nausea or vomiting Genitourinary Genitourinary ED: Denies dysuria, hematuria or urinary frequency Musculoskeletal Musculoskeletal: Denies arthralgias or myalgias Integumentary Denies abscess or rash Neurologic Neurologic: Denies headache(s) or weakness Psychiatric Psychiatric: Denies anxiety, depression, suicidal ideation or suicidal thoughts Endocrine Endocrinology: Denies polydipsia, polyphagia or polyuria Allergic/Immunologic Allergic/Immunologic ED: Denies mouth swelling, tongue swelling or urticaria EXAM Physical Exam Const Vital Signs: 04/28/22 18:43 04/28/22 19:19 04/28/22 19:40 Temperature 96.8 F L 97.8 F Temperature Source Temporal Pulse Rate 133 H 126 H Pulse Rate [1 (Initial Baseline)] Respiratory Rate 16 17 Respiratory Rate [1 (Initial Baseline)] Respiratory Effort Normal Non-Labored Blood Pressure 131/86 H Blood Pressure [1 (Initial Baseline)] Blood Pressure Mean 101 Pulse Ox 98 99 Oxygen Delivery Method Room Air Nasal Cannula Oxygen Delivery Method [1 (Initial Baseline)] Oxygen Flow Rate (L/min) 2 Oxygen Flow Rate (L/min) [1 (Initial Baseline)] 04/28/22 19:49 04/28/22 19:55 04/28/22 20:01 Temperature Temperature Source Pulse Rate Pulse Rate [1 (Initial Baseline)] Respiratory Rate Respiratory Rate [1 (Initial Baseline)] Respiratory Effort Blood Pressure Blood Pressure [1 (Initial Baseline)] Blood Pressure Mean Pulse Ox Oxygen Delivery Method Nasal Cannula Nasal Cannula Nasal Cannula Oxygen Delivery Method [1 (Initial Baseline)] Oxygen Flow Rate (L/min) 2 2 2 Oxygen Flow Rate (L/min) [1 (Initial Baseline)] 04/28/22 19:45 04/28/22 20:28 Temperature Temperature Source Pulse Rate 76 Pulse Rate [1 (Initial Baseline)] 128 H Respiratory Rate 17 Respiratory Rate [1 (Initial Baseline)] 18 Respiratory Effort Blood Pressure 116/84 H Blood Pressure [1 (Initial Baseline)] 133/64 H Blood Pressure Mean 94 Pulse Ox 99 Oxygen Delivery Method Room Air Oxygen Delivery Method [1 (Initial Baseline)] Nasal Cannula Oxygen Flow Rate (L/min) Oxygen Flow Rate (L/min) [1 (Initial Baseline)] 2 Positive well nourished and well developed General Appearance ED: well developed HEENT Reports normocephalic, head/scalp atraumatic and moist mucous membranes Eyes PERRL and EOMs intact bilaterally Neck no lymphadenopathy, supple and no JVD Resp normal respiratory effort and clear to auscultation bilaterally Cardio no murmurs Rate: tachycardic Rhythm: abnormal rhythm irregularly irregular GI normal to inspection, nondistended, normoactive bowel sounds and non-tender Palpation: soft Back/Spine no CVA tenderness and normal ROM Extremity normal to inspection General Extremety ED: Negative for edema General Extremity: Negative for edema Neuro oriented x3 and CN's II-XII intact bilaterally Sensorium / Orientation: alert Motor Exam: strength 5/5 throughout Psych mental status grossly normal Mood & Affect: Negative for depressed or tearful Skin no rashes or lesions noted and no wounds MDM MDM MDM Narrative Medical decision making narrative: Patient's potassium returns at 3.3 with a magnesium of 2.0. TSH 2.42. We will replace the potassium over the next couple days. Patient provided informed consent for the use of etomidate for procedural sedation for cardioversion. The patient received 0.15 mg of etomidate. Once adequate sedation was achieved a 200 J synchronized shock was delivered. This resulted in return to normal sinus rhythm. EKG was obtained. At this point patient will be allowed to recover. Total sedation time is 4 minutes. Patient to return if worsening or concerns. Lab Data Attestation: I reviewed the patient's lab results. Labs: Laboratory Results - last 24 hr 04/28/22 04/28/22 19:15 19:15 WBC 7.1 RBC 4.25 Hgb 12.7 Hct 38.2 MCV 89.9 MCH 29.9 MCHC 33.2 RDW Std Deviation 42.2 RDW Coeff of Qamar 13.0 Plt Count 352 MPV 11.1 Immature Gran % (Auto) 0.300 Neut % (Auto) 53.2 Lymph % (Auto) 34.3 [place] % (Auto) 8.2 Eos % (Auto) 3.4 Baso % (Auto) 0.6 Absolute Neuts (auto) 3.8 Absolute Lymphs (auto) 2.44 Nucleated RBC % 0 Sodium 143 Potassium 3.3 L Chloride 108 H Carbon Dioxide 29.0 Anion Gap 6 BUN 15 Creatinine 1.00 Estim Creat Clear Calc 50.27 Est GFR (MDRD) Af Amer 74 Est GFR (MDRD) Non-Af 61 BUN/Creatinine Ratio 15.0 Glucose 119 H Calcium 9.6 Magnesium 2.0 Total Bilirubin 0.30 AST 14 L ALT 15 Alkaline Phosphatase 118 H Total Protein 7.8 Albumin 3.9 Globulin 3.9 Albumin/Globulin Ratio 1.0 TSH 2.42 Radiography Diagnostic Testing: Clinical Impression(s) from Imaging Studies Chest X-Ray 04/28/22 19:32 IMPRESSION: No acute cardiopulmonary disease or interval change. Electronically Signed: Geoff Segovia DO at 19:46 EDT Reading Location ID and State: [address] [place] [address] Tel [phone], Service support , EKG Initial EKG: Attestation: I personally reviewed and interpreted this EKG as follows: Comments: Atrial flutter with variable block at a ventricular rate of 125 bpm. Follow-up EKG: Attestation: I personally reviewed and interpreted this EKG as follows: Comments: Sinus rhythm with a ventricular rate of 74 bpm. Discharge Plan Triage Chief Complaint: Palpitations ED Provider: Rafael Gonzalez Dx/Rx/DC Orders Clinical Impression: Atrial flutter, Hypokalemia Instructions: ED Tachycardia: PAT Prescriptions: New potassium chloride 20 mEq packet 20 meq PO DAILY Qty: 5 0RF No Action aspirin [Adult Low Dose Aspirin] 81 mg tablet,delayed release (DR/EC) 81 mg PO DAILY PRN (Reason: herat health) Label Comments: stop as directed pre colonoscopy cholecalciferol (vitamin D3) 50 mcg (2,000 unit) tablet 50 mcg PO DAILY Elderberry Zinc Vit C 90-15 mg lozenge 1 abdoulaye PO DAILY lactobacillus combo no.11 1 EACH capsule, sprinkle 1 ea PO DAILY metoprolol tartrate 25 mg tablet 12.5 mg PO BID Qty: 180 3RF [facility]: Floyd Stein[facility] MD [Med Staff - Active Staff] - As soon as possible [facility],[place] Doll [Primary Care Provider] - Disposition Disposition: Home, Self Care
[2022-04-28] MEDS: Etomidate 20 MG/10 ML Vial IV (19:45)
[2022-04-28 19:51] LABS: AST(SGOT) 14 U/L (15-37); Alanine Aminotransfer ALT/SGPT 15 U/L (13-56); Albumin, Serum 3.9 g/dL (3.2-5.0); Alkaline Phosphatase 118 U/L (45-117); Anion Gap 6 (5-15); BUN 15 mg/dL (7-18); Calcium,Total 9.6 mg/dL (8.5-10.1); Chloride 108 mmol/L (98-107); EST Glomerular Filtration Rate 61 mL/min (>60); Est Glom Filt Rate - Afr Amer 74 mL/min (>60); Estimated Creatinine Clearance 50.27 ml/min; Globulin 3.9 g/dL (2.2-4.2); Glucose 119 mg/dL (74-106); Potassium 3.3 mmol/L (3.5-5.1); Protein, Total 7.8 g/dL (6.4-8.2); Sodium Level 143 mmol/L (136-145); Thyroid Stim Hormone (TSH) 2.42 uIU/mL (0.358-3.74)
== END 2022-04-28 21:07 | disposition home or self-care (01) ==
PROVIDERS: Emergency Provider Emergency Medicine; Visit Provider Emergency Medicine
DX: I48.92 Unspecified atrial flutter (principal); E87.6 Hypokalemia; E78.2 Mixed hyperlipidemia; R00.2 Palpitations; Z87.891 Personal history of nicotine dependence; Z79.82 Long term (current) use of aspirin; Z79.899 Other long term (current) drug therapy
CPT/HCPCS: 71045; 80053; 83735; 84443; 85025; 92960; 93005; 96374; 99284; J7030; A4216

== ENCOUNTER → 2022-05-13 | Outpatient (CLI) | payer MEDICAID, SELFPAY ==
[2022-05-13 11:21] LABS: Anion Gap 6 (5-15); BUN 15 mg/dL (7-18); BUN/Creat Ratio 18.1 RATIO (10-20); Calcium,Total 9.4 mg/dL (8.5-10.1); Chloride 105 mmol/L (98-107); Creatinine, Serum 0.83 mg/dL (0.55-1.02); EST Glomerular Filtration Rate 76 mL/min (>60); Est Glom Filt Rate - Afr Amer 92 mL/min (>60); Glucose 99 mg/dL (74-106); Sodium Level 139 mmol/L (136-145)
== END | disposition home or self-care (01) ==
LOC: LAB 10:05
PROVIDERS: Referring Provider Nurse Practitioner Family; Visit Provider Nurse Practitioner Family
DX: I48.92 Unspecified atrial flutter (principal); I47.1 Supraventricular tachycardia; E78.2 Mixed hyperlipidemia; Z98.890 Other specified postprocedural states
CPT/HCPCS: 36415; 80048

== ENCOUNTER → 2022-09-03 | Outpatient (CLI) | payer MEDICAID, SELFPAY ==
--- NOTE | 2022-09-03 07:30 | ECHOD_ITS ---
Reason For Study: Afib, Aflutter Procedure This was a 2D Doppler, Color Flow transthoracic echocardiogram. The exam was of adequate technical quality. Exam performed in department. Left Ventricle Normal LV size. Left ventricular systolic function is normal. The estimated ejection fraction is 65 %. No evidence for diastolic dysfunction. Right Ventricle Normal RV size. Normal systolic function. Atria Normal left atrium. Normal right atrium. No doppler evidence for ASD. Mitral Valve There is no mitral annular calcification. The mitral valve is structurally normal. No prolapse or stenosis seen. Mild (1+) mitral valve insufficiency. Tricuspid Valve Normal tricuspid valve. Trivial tricuspid valve insufficiency. Right ventricular systolic pressure estimated to be 19 mmHg. Aortic Valve Trisinus/trileaflet aortic valve. Normal aortic valve. Pulmonic Valve The pulmonic valve is not well visualized. Mild (1+) pulmonic valve insufficiency. Great Vessels Normal sized aortic root. Pericardium/Pleural No pericardial effusion. MMode/2D Measurements & Calculations LVIDd: 4.6 cm IVSd: 0.59 cm Ao root diam: 2.9 cm LVIDs: 2.9 cm LVPWd: 0.69 cm RVDd: 3.0 cm FS: 36.5 % LAV(MOD-bp): 18.7 ml LVAd ap4: 22.7 cm2 SV(MOD-sp4): 40.9 ml LAV(MOD-bp) Indexed: 11.7 ml/m2 LVLd ap4: 6.9 cm LAV(MOD-sp2): 24.1 ml EDV(MOD-sp4): 59.7 ml LAV(MOD-sp4): 13.7 ml EDV(sp4-el): 62.9 ml LVAs ap4: 11.0 cm2 LVLs ap4: 5.4 cm ESV(MOD-sp4): 18.8 ml ESV(sp4-el): 18.9 ml EF(MOD-sp4): 68.5 % EF(sp4-el): 69.9 % SV(sp4-el): 44.0 ml LA A4 area: 8.3 cm2 LA dimension(2D): 3.1 cm RA A4 area: 9.7 cm2 Time Measurements MV dec time: 0.21 sec Doppler Measurements & Calculations MV E max stone: 53.4 cm/sec Lat Peak E' Stone: 13.8 cm/sec Med Peak E' Stone: 6.9 cm/sec MV A max stone: 55.3 cm/sec E/E' lat: 3.9 E/E' med: 7.8 MV E/A: 0.97 Ao V2 max: 111.0 cm/sec LV V1 max: 91.0 cm/sec MV dec slope: 253.7 cm/sec2 Ao max P.9 mmHg LV V1 max P.3 mmHg Ao V2 mean: 79.4 cm/sec Ao mean P.7 mmHg Ao V2 VTI: 22.4 cm PA V2 max: 87.2 cm/sec PI end-d stone: 79.8 cm/sec TR max stone: 198.5 cm/sec TR max P.8 mmHg ECHO/Echo Complete Interpretation Summary Left ventricular systolic function is normal. The estimated ejection fraction is 65 %. Mild (1+) mitral valve insufficiency. Trivial tricuspid valve insufficiency. Mild (1+) pulmonic valve insufficiency. Right ventricular systolic pressure estimated to be 19 mmHg. No evidence for diastolic dysfunction. Ordering Physician: Kevin Mishra Referring Physician: Vicenta Peterson Performed By: Payton Mishra, CM, RVT
== END | disposition home or self-care (01) ==
PROVIDERS: PCP Nurse Practitioner Family; Visit Provider Nurse Practitioner Family
DX: I48.92 Unspecified atrial flutter (principal); I47.1 Supraventricular tachycardia; Z98.890 Other specified postprocedural states
CPT/HCPCS: 93306

== ENCOUNTER → 2024-03-17 | Outpatient (CLI) | payer MEDICAID, SELFPAY ==
[2024-03-17 10:29] LABS: AST(SGOT) 16 U/L (15-37); Alanine Aminotransfer ALT/SGPT 13 U/L (13-56); Albumin, Serum 3.8 g/dL (3.2-5.0); Alkaline Phosphatase 143 U/L (45-117); Bilirubin, Direct 0.12 mg/dL (0.00-0.30); Cholesterol 255 mg/dL (200); Globulin 4.1 g/dL (2.2-4.2); High Density Lipoprotein 53 mg/dL; Protein, Total 7.9 g/dL (6.4-8.2); Triglycerides 207 mg/dL; Very Low Density Lipoprotein 41 mg/dL (5-40)
== END | disposition home or self-care (01) ==
LOC: LAB 07:08
PROVIDERS: Referring Provider Nurse Practitioner Gerontology; Visit Provider Nurse Practitioner Gerontology
DX: E78.2 Mixed hyperlipidemia (principal)
CPT/HCPCS: 36415; 80061; 80076

== ENCOUNTER → 2024-05-23 | Outpatient (CLI) | payer MEDICAID, SELFPAY ==
[2024-05-23 17:19] LABS: Absolute Lymphocyte Count 2.08 X10^3/uL (0.83-4.51); Absolute Neutrophil Count 4.2 X10^3/uL (2.0-7.7); Basophil# 0.06 X10^3/uL; Basophil% 0.8 % (0-1); Eosinophil# 0.38 X10^3/uL; Eosinophils% 5.2 % (0-5); Hematocrit 36.7 % (37-47); Hemoglobin 11.9 g/dL (12.0-15.0); Lymphocyte # 2.08 X10^3/ul (0.83-4.51); Lymphocyte % 28.7 % (19-41); Mean Corp Hgb Conc 32.4 g/dL (32-36); Mean Corpuscular Hgb 29.1 pg (27.0-32.0); Mean Corpuscular Volume 89.7 fL (81-99); Mean Platelet Vol. 10.6 fl (6.2-12.0); Monocyte# 0.58 X10^3/uL; NRBC Flagged by Analyzer 0 % (0-5); Neutrophil # 4.15 X10^3/uL (2.7-7.7); Neutrophil % 57.2 % (47-70); Platelet Count 398 K/mm3 (150-450); RBC Distribution Width CV 13.2 % (11.6-14.6); RBC Distribution Width SD 43.2 fl (35.1-43.9); Red Blood Count 4.09 M/mm3 (4.2-5.4); White Blood Count 7.3 K/mm3 (4.4-11.0)
[2024-05-23 17:34] LABS: Vitamin D,25 Hydroxy 31.6 ng/mL
[2024-05-23 17:36] LABS: Hemoglobin A1c 5.4 % (3.8-5.6)
[2024-05-23 17:43] LABS: AST(SGOT) 20 U/L (15-37); Alanine Aminotransfer ALT/SGPT 17 U/L (13-56); Albumin, Serum 3.8 g/dL (3.2-5.0); Alkaline Phosphatase 137 U/L (45-117); Anion Gap 5 (5-15); BUN 24 mg/dL (7-18); BUN/Creat Ratio 25.8 RATIO (10-20); Calcium,Total 9.5 mg/dL (8.5-10.1); Chloride 105 mmol/L (98-107); Creatinine, Serum 0.93 mg/dL (0.55-1.02); EST Glomerular Filtration Rate 66 mL/min (>60); Est Glom Filt Rate - Afr Amer 80 mL/min (>60); Glucose 98 mg/dL (74-106); Potassium 3.7 mmol/L (3.5-5.1); Protein, Total 7.8 g/dL (6.4-8.2); Sodium Level 138 mmol/L (136-145)
== END | disposition home or self-care (01) ==
PROVIDERS: PCP Nurse Practitioner Family; Referring Provider Nurse Practitioner Family; Visit Provider Nurse Practitioner Family
DX: Z13.1 Encounter for screening for diabetes mellitus (principal); I48.92 Unspecified atrial flutter; R04.0 Epistaxis; E55.9 Vitamin D deficiency, unspecified
CPT/HCPCS: 36415; 80053; 82306; 83036; 84443; 85025

== ENCOUNTER 2024-10-07 01:49 | Emergency (ER) | payer MEDICAID, SELFPAY ==
[2024-10-07 01:50] VITALS: BP 112/96; PULSE 96; RESP 15; TEMP 36.9; O2SAT 95; BMI 22.7
--- NOTE | 2024-10-07 02:05 | EDS_ITS ---
HPI History of Present Illness Chief Complaint: Shortness of Breath Informant: patient Narrative Narrative: 59-year-old female with a history of atrial fibrillation on Cardizem presenting to the emergency room with the chief complaint of cough and dyspnea. Patient states that on Tuesday she developed rhinorrhea. By Tuesday she noticed that when she exhaled she would cough. She has not been having fevers and is not producing sputum. She denies myalgias headache vomiting or diarrhea. She denies history of asthma or smoking. [facility] Medical History Paroxysmal supraventricular tachycardia Mixed hyperlipidemia GERD (gastroesophageal reflux disease) History of back problems Home Medications ?Medication ?Instructions ?Recorded ?Last Taken ?Type vitamin C 90 mg-zinc gluconate 15 1 abdoulaye PO DAILY 11/02 Unknown History mg-herbal complex no. 325 lozenges (Elderberry Zinc Vit C) acetaminophen 500 mg tablet 500 mg PO Q6H PRN fever or pain 05/13/22 Unknown History (Tylenol Extra Strength) cholecalciferol (vitamin D3) 50 25 mcg PO DAILY Unknown History mcg (2,000 unit) tablet mecobalamin (vitamin B12) 2,500 2,500 mcg PO DAILY 09/17 Unknown History mcg chewable tablet diltiazem HCl 120 mg capsule,24 120 mg PO DAILY #90 ca ps 02/02/24 Unknown Rx hr,extended release doxycycline monohydrate 100 mg 100 mg PO BID #14 CAPSU LES 10/07/24 Unknown Rx capsule Allergy/AdvReac Type Severity Reaction Status Date / Time homatropine (From Hydromet) Allergy Unknown unknown Verified 10/07/24 01:55 hydrocodone (From Hydromet) Allergy Unknown unknown Verified 10/07/24 01:55 amoxicillin trihydrate (From Allergy Unknown Verified 10/07/24 01:55 Augmentin) erythromycin base Allergy Rash Verified 10/07/24 01:55 hydroxyzine Allergy Unknown Verified 10/07/24 01:55 Latex, Natural Rubber Allergy Rash Verified 10/07/24 01:55 potassium clavulanate (From Allergy Unknown Verified 10/07/24 01:55 Augmentin) pseudoephedrine Allergy Other Verified 10/07/24 01:55 tramadol Allergy Other Verified 10/07/24 01:55 budesonide AdvReac Other Verified 10/07/24 01:55 misoprostol (From Cytotec) AdvReac Upset Verified 10/07/24 01:55 Stomach Family History Mother Arthritis Heart disease Father Colon cancer Heart disease CVA (cerebral vascular accident) Grandfather Heart disease Grandmother Heart disease Aunt Seizures Surgical History History of radiofrequency ablation procedure for cardiac arrhythmia History of left oophorectomy History of appendectomy History of Social History Smoking Status: Former smoker alcohol intake: never substance use type: does not use caffeine: Yes Type: carbonated beverages Number of servings: 1 and coffee Number of servings: 1 ROS ROS ED Constitutional Constitutional ED: Denies chills, fever(s) or weight loss Eyes Eyes: Denies change in vision or diplopia ENT ENT ED: Reports rhinorrhea; Denies ear pain or sore throat Cardiovascular Cardiovascular: Denies chest pain, orthopnea, palpitations or racing heartbeat Respiratory/Chest Respiratory/Chest: Reports cough and dyspnea; Denies orthopnea Gastrointestinal Gastrointestinal: Denies abdominal pain, diarrhea, nausea or vomiting Genitourinary Genitourinary ED: Denies dysuria, hematuria or urinary frequency Musculoskeletal Musculoskeletal: Denies arthralgias or myalgias Integumentary Denies abscess or rash Neurologic Neurologic: Denies headache(s) or weakness Psychiatric Psychiatric: Denies anxiety, depression, suicidal ideation or suicidal thoughts Endocrine Endocrinology: Denies polydipsia, polyphagia or polyuria Allergic/Immunologic Allergic/Immunologic ED: Denies mouth swelling, tongue swelling or urticaria EXAM Physical Exam Const Vital Signs: 10/07/24 01:50 10/07/24 02:16 10/07/24 02:21 Temperature 98.4 F Temperature Source Oral Pulse Rate 96 99 Respiratory Rate 15 16 Respiratory Effort Normal Non-Labored Respiratory Depth Normal Respiratory Pattern Normal Normal Blood Pressure 112/96 H Blood Pressure Mean 101 Pulse Ox 95 Oxygen Delivery Method Room Air Room Air 10/07/24 03:00 10/07/24 03:46 Temperature 98.2 F Temperature Source Pulse Rate 93 94 Respiratory Rate 18 18 Respiratory Effort Respiratory Depth Respiratory Pattern Blood Pressure 131/61 H 107/53 L Blood Pressure Mean 84 71 Pulse Ox 96 94 Oxygen Delivery Method Room Air Positive well nourished and well developed General Appearance ED: well developed and NAD HEENT Reports normocephalic, head/scalp atraumatic and moist mucous membranes HEENT Narrative: Turbinate edema clear rhinorrhea Eyes PERRL and EOMs intact bilaterally Neck no lymphadenopathy, supple and no JVD Resp normal respiratory effort Auscultation: wheezes expiratory wheezes Cardio regular rate, regular rhythm and no murmurs GI normal to inspection, nondistended, normoactive bowel sounds and non-tender Palpation: soft Back/Spine no CVA tenderness and normal ROM Extremity normal to inspection General Extremety ED: Negative for edema General Extremity: Negative for edema Neuro oriented x3 and CN's II-XII intact bilaterally Sensorium / Orientation: alert Motor Exam: strength 5/5 throughout Psych mental status grossly normal Mood & Affect: Negative for depressed or tearful Skin no rashes or lesions noted and no wounds MDM MDM MDM Narrative Medical decision making narrative: Differential diagnosis includes but not limited to pneumonia bronchitis bronchospasm viral syndrome URI mucous plugging My independent interpretation the chest x-ray is no distinct infiltrate. Patient received a DuoNeb. Her COVID influenza and RSV swab are negative. Lung auscultation shows resolved wheezing but now rhonchi particularly at the right base. I will place her on doxycycline and we will perform albuterol MDI ins truction. Would recommend PCP follow-up if not improving return if worsening History & Record Review Discussion w/independent historian: Patient Radiography Diagnostic Testing: Clinical Impression(s) from Imaging Studies Chest X-Ray 10/07/24 02:35 IMPRESSION: Patchy ill-defined opacities now seen at the mid to lower lungs may represent developing infiltrate, infectious or inflammatory, clinically correlate. No focal consolidation or pleural effusion. Reading Location: [facility] EKG Initial EKG: Attestation: I personally reviewed and interpreted this EKG as follows: Comments: Normal sinus rhythm ventricular rate of 91 bpm Discharge Plan Triage Chief Complaint: Shortness of Breath ED Provider: Rafael Gonzalez Dx/Rx/DC Orders Clinical Impression: Acute bronchitis, Acute bronchospasm Instructions: ED Bronchitis with Wheezing (Adult) Prescriptions: New doxycycline monohydrate 100 mg capsule 100 mg PO BID Qty: 14 0RF No Action Elderberry Zinc Vit C 90-15 mg lozenge 1 abdoulaye PO DAILY cholecalciferol (vitamin D3) 50 mcg (2,000 unit) tablet 25 mcg PO DAILY acetaminophen [Tylenol Extra Strength] 500 mg tablet 500 mg PO Q6H PRN (Reason: fever or pain) mecobalamin (vitamin B12) 2,500 mcg tablet,chewable 2,500 mcg PO DAILY diltiazem HCl 120 mg capsule,extended release 24 hr 120 mg PO DAILY Qty: 90 3RF Stand Alone Forms: ED Work / School Excuse Primary Care Provider: Vicenta Peterson Referrals: Vicenta Peterson, [employer]OF[employer] EDUCATION ASSISTANT-C [Primary Care Provider] - 1 Week if not improving Activity Restrictions/Additional Instructions: Please take the entire 7-day course of the antibiotic The inhaler is 2 to 3 puffs every 2 hours as needed for cough/dyspnea Print Language: Spanish Disposition Disposition: Home, Self Care Discharge Date/Time: 10/07/24 03:51
--- NOTE | 2024-10-07 02:09 | EKG12_ITS ---
Test Reason : SOB Blood Pressure : */* mmHG Vent. Rate : 91 BPM Atrial Rate : 91 BPM P-R Int : 154 ms QRS Dur : 64 ms QT Int : 348 ms P-R-T Axes : 76 64 67 degrees QTcB Int : 428 ms Normal sinus rhythm Normal ECG Confirmed by AALIYAH TRAORE, DONNELL ([id number]), story editor ARMOND ASHLEY ([id number]) on 10/08/2024 8:20:19 AM Referred By: GOYO Confirmed By: DONNELL FISCHER MD
[2024-10-07 02:16] VITALS: O2SAT 95
[2024-10-07] MEDS: Ipratropium/Albuterol Sulfate 3 ML AMPUL.NEB INHALATION (02:20)
[2024-10-07 02:21] VITALS: PULSE 99; RESP 16
--- NOTE | 2024-10-07 02:35 | RAD_ITS ---
PROCEDURE: CHEST PA AND LATERAL 10/07/2024 REASON FOR EXAM: COUGH TECHNIQUE: PA and lateral views of the chest. COMPARISON: 04/28/2022. FINDINGS: Patchy ill-defined opacities now seen at the mid to lower lungs may represent developing infiltrate, infectious or inflammatory, clinically correlate. No focal consolidation or pleural effusion. The cardiac and mediastinal contours appear within limits. S shaped curvature, scoliosis. RAD/Chest PA and Lateral IMPRESSION: Patchy ill-defined opacities now seen at the mid to lower lungs may represent d eveloping infiltrate, infectious or inflammatory, clinically correlate. No focal consolidation or pleural effusion. Reading Location: [id number]
[2024-10-07 03:00] VITALS: BP 131/61; PULSE 93; RESP 18; O2SAT 96
[2024-10-07 03:46] VITALS: BP 107/53; PULSE 94; RESP 18; TEMP 36.8; O2SAT 94
[2024-10-07] MEDS: Albuterol Sulfate 8 gm Inhaler (60 puffs) 2 PUFF INHALATION (03:49)
[2024-10-07] MEDS: Doxycycline 100 MG CAPSULE PO (03:49)
[2024-10-07] MEDS: INHALER, ASSIST DEVICES 1 EACH SPACER INHALATION (03:50)
== END 2024-10-07 03:51 | disposition home or self-care (01) ==
PROVIDERS: Emergency Provider Emergency Medicine; PCP Nurse Practitioner Family; Visit Provider Emergency Medicine
DX: J20.9 Acute bronchitis, unspecified (principal); I48.91 Unspecified atrial fibrillation; Z11.52 Encounter for screening for COVID-19; E78.2 Mixed hyperlipidemia; Z79.899 Other long term (current) drug therapy; Z87.891 Personal history of nicotine dependence
CPT/HCPCS: 71046; 87631; 93005; 94640; 99282

== ENCOUNTER → 2025-04-20 | Outpatient (CLI) | payer MEDICAID, SELFPAY ==
--- OUTSIDE RECORDS SUMMARY | 2025-04-20 07:00 | XMS RPT_ITS ---
Author Name [employer] Organization OHIP PROBLEMS No Problem Records Found PROCEDURES No Procedure Records Found RESULTS BACTERIA UR CULT Observed: 03/28/2025 2:20 PM Status: F Source: [facility] ORGANISM ID: [id number]<100,000 CFU/ml Escherichia coli ORGANISM ID: 1 (ESCHERICHIA COLI) ----- ----- ANTIBIOTIC INTERPRETATION ANA STATUS REFERENCE RANGE ----- ----- Ampicillin R >=32 F Susceptible <=8 , Intermediate >8 , Resistant >16 Cefazolin S <=4 F Susceptible 0-16 , Intermediate <0 or >16 , Resistant >16 For uncomplicated urinary tract infections, cefazolin results can be used to predict susceptibility or resistance to cephalexin. Ceftriaxone S <=1 F Susceptible <=1 , Intermediate >1 , Resistant >=4 Cefepime S <=1 F Susceptible <=2 , Susceptible-Dose Dependent >2 , Resistant >=16 Ertapenem S <=0.5 F Susceptible <=0.5 , Intermediate >.5 , Resistant >1 Meropenem S <=0.25 F Susceptible <=1 , Intermediate >1 , Resistant >2 Ampicillin/Sulbact S 8 F Susceptible <=8 , Intermediate >8 , Resistant >16 Piperacillin/Tazobac S <=4 F Susceptible <16 , Susceptible-Dose Dependent >=16 , Resistant >=32 Gentamicin S <=1 F Susceptible <=2 , Intermediate >2 , Resistant >=8 Tobramycin S <=1 F Susceptible <4 , Intermediate >=4 , Resistant >=8 Trimeth sulfameth S <=20 F Susceptible <=40 , Resistant >40 Ciprofloxacin S <=0.25 F Susceptible <0.5 , Intermediate >=.5 , Resistant >=1 Nitrofurantoin S <=16 F Susceptible <=32 , Intermediate >32 , Resistant >64 Performed By: #### [id number] ### # [facility] CLIA [id number] [address] [place] [address] [place] ALLERGIES No Allergies Records Found ENCOUNTERS No Encounter Records Found PAYERS No Payer Records Found
[2025-04-20 08:21] LABS: AST(SGOT) 21 U/L (<=31); Alanine Aminotransfer ALT/SGPT 9 U/L (<=34); Albumin, Serum 4.4 g/dL (3.5-5.0); Alkaline Phosphatase 130 U/L (35-104); Bilirubin, Direct 0.20 mg/dL (0.00-0.30); Cholesterol 232 mg/dL (<=200); Globulin 3.4 g/dL (2.2-4.2); Low Density Lipoprotein Calc. 149 mg/dL; Triglycerides 117 mg/dL; Very Low Density Lipoprotein 23 mg/dL (5-40); cholesterol:hdl ratio screen 3.91
== END | disposition home or self-care (01) ==
LOC: LAB 06:56
PROVIDERS: PCP Nurse Practitioner Family; Referring Provider Internal Medicine Cardiovascular Disease; Visit Provider Internal Medicine Cardiovascular Disease
DX: E78.2 Mixed hyperlipidemia (principal)
CPT/HCPCS: 36415; 80061; 80076